=== PATIENT | male | born 1960 | race Asian ===

== ENCOUNTER 2023-04-15 10:54 | Outpatient (REF) | payer OTHER, SELFPAY ==
--- NOTE | ~2023-04-15 | US_ITS ---
EXAMINATION: US RETROPERITONEAL LIMITED (AORTA) CLINICAL INFORMATION: Abdominal aortic aneurysm screening. History of remote smoking. COMPARISON: None available. TECHNIQUE: Mcintosh-scale, color Doppler and spectral Doppler evaluation of the abdominal aorta. FINDINGS: The measurements of the aorta in maximum AP and transverse dimensions respectively are as follows: Proximal: 2.4 x 2.1 cm. Mid: 2.5 x 1.7 cm. Distal: 2.1 x 2.0 cm. PSV: 67 cm/s. The measurements of the common iliac arteries in maximum AP and TRV dimensions are as follows: Right Common Iliac Artery: 1.9 cm. Left Common Iliac Artery: 1.5 cm. US/US abdominal aortic aneurysm IMPRESSION: Negative for abdominal aortic aneurysm.
== END 2023-04-15 10:55 | disposition home or self-care (01) ==
LOC: HO.UMASIMG 10:54
PROVIDERS: PCP Family Medicine; Visit Provider Family Medicine
DX: Z13.9 Encounter for screening, unspecified (principal); E03.9 Hypothyroidism, unspecified; E11.9 Type 2 diabetes mellitus without complications
CPT/HCPCS: 76706

== ENCOUNTER 2024-07-25 08:25 | Outpatient (REF) | payer OTHER, SELFPAY ==
--- NOTE | ~2024-07-25 | US_ITS ---
EXAMINATION: US THYROID HISTORY: ENLARGED THYROID GLAND ON EXAM TECHNIQUE: Real-time grayscale ultrasound imaging was performed and images were reviewed. COMPARISON: There are no prior studies for comparison. FINDINGS: SIZE: The right thyroid lobe measures 2.4 x 0.5 x 1.4 cm. The left thyroid lobe measures 1.6 x 0.5 x 0.8 cm. The isthmus measures 3 mm. FLOW: Flow to the gland is normal. ECHOGENICITY: The echotexture of the gland is homogeneous. NODULES: No discrete nodules are identified. US/US thyroid IMPRESSION: Atrophic thyroid gland. No discrete nodules are identified. ACR TI-RADS Guidelines TR1 (0 points): Benign, No follow-up or biopsy required TR2 (2 points): Not Suspicious, No biopsy or follow up indicated TR3 (3 points): Mildly Suspicious, FNA if >= 2.5 cm, Follow if >= 1.5 cm TR4 (4-6 points): Moderately Suspicious, FNA if >= 1.5 cm, Follow if >= 1.0 cm TR5 (>=7 points): Highly Suspicious, FNA if >= 1.0 cm, Follow if >= 0.5 cm Electronically signed by: Leif Whitmore MD 07/26/2024 02:45 PM EDT
== END 2024-07-25 08:26 | disposition home or self-care (01) ==
LOC: HO.UMASIMG 08:25
PROVIDERS: Visit Provider Family Medicine
DX: E03.9 Hypothyroidism, unspecified (principal); E11.9 Type 2 diabetes mellitus without complications; D44.0 Neoplasm of uncertain behavior of thyroid gland
CPT/HCPCS: 76536

== ENCOUNTER → 2024-07-25 08:30 | Outpatient (BNV) | payer OTHER, SELFPAY | PROVIDERS: Visit Provider Radiology Diagnostic Radiology | DX: E03.4 Atrophy of thyroid (acquired) (principal) | CPT/HCPCS: 76536 ==